=== PATIENT | male | born 1990 | race Two or more races ===

== ENCOUNTER 2018-05-28 08:16 | Emergency (ER) | payer SELFPAY ==
[~2018-05-28] VITALS: Ht 162.6 cm; Wt 79.3 kg
[2018-05-28 08:19] VITALS: BP 143/77; PULSE 89; RESP 18; Ht 162.6 cm; Wt 79.3 kg
[2018-05-28] MEDS ORDERED: SULF15DR19 BOTH EYES (09:16)
--- NOTE | 2018-05-28 09:19 | ERD ---
ER Documentation Chief Complaint Chief Complaint eye reddness and discharge x 2 days HPI 27-year-old male presents with left eye redness and discharge. He also has a mildly in the right eye today as well. Denies any contact lens use. Denies any pain or visual changes except for mild clouding when the discharge has been accumulating and his eyes shut with discharge in the morning. Blurry vision resolved after removal of discharge. He has had a recent cough and congestion over the last week which is improving. ROS All systems reviewed and are negative except as per history of present illness. Medications Home Meds Active Scripts Sulfacetamide Sodium* (Bleph-10*) 10%-15 Ml Opht Drops, 1 DROP BOTH EYES QID for 7 Days, #1 EA Prov:NORMAN LEWIS MD 05/28/18 PMhx/Soc Medical and Surgical Hx: pt denies Medical Hx, pt denies Surgical Hx Hx Alcohol Use: No Hx Substance Use: No Hx Tobacco Use: No Smoking Status: Never smoker FmHx Family History: No diabetes, No coronary disease, No other Physical Exam Vitals Vital Signs Date Temp Pulse Resp B/P (MAP) Pulse Ox O2 O2 Flow FiO2 Time Delivery Rate 05/28/18 98.0 89 18 143/77 100 08:19 (99) Physical Exam Const: No acute distress Head: Atraumatic Eyes: Scleral redness. Dried yellow discharge on the eyelashes bilaterally. No proptosis, orbital erythema, or abnormalities in anterior chamber. No appreciable ulcers or dendritic lesions. ENT: Normal External Ears, Nose and Mouth. Neck: Full range of motion. No meningismus. Resp: Clear to auscultation bilaterally Cardio: Regular rate and rhythm, no murmurs Abd: Soft, non tender, non distended. Normal bowel sounds Skin: No petechiae or rashes Back: No midline or flank tenderness Ext: No cyanosis, or edema Neur: Awake and alert Psych: Normal Mood and Affect Procedures/MDM She presents with signs and symptoms of bilateral conjunctivitis, left greater than right. We will treat with Bleph-10, warm compresses, primary care follow- up and return precautions. Patient has no signs or symptoms of visual changes, visual field deficits. There are no signs or symptoms to suggest orbital cellulitis, retinal detachment, optic neuritis, retinal artery ischemia, d endritic lesions, ulcers, threats to vision or additional eye emergencies. Doubt acute glaucoma. Patient will be discharged home with recommendations for primary care and ophthalmology follow-up within the next 1-2 days. They should otherwise return to the ER for persistent or worsening symptoms. Departure Diagnosis: Primary Impression: Conjunctivitis Conjunctivitis type: unspecified Laterality: left Qualified Codes: H10.9 - Unspecified conjunctivitis Condition: Stable Patient Instructions: Conjunctivitis, Bacterial Additional Instructions: Warm compresses at home. Recheck for new or worsening symptoms with primary care doctor. NORMAN LEWIS MD May 28, 2018 09:19
== END 2018-05-28 09:26 | disposition home or self-care (01) ==
LOC: FTE 08:16
DX: H10.9 Unspecified conjunctivitis (principal)
CPT/HCPCS: 99283